=== PATIENT | female | born 1985 | race Two or more races ===

== ENCOUNTER 2019-06-15 18:44 | Observation (INO) | payer SELFPAY ==
[2016-02-28 21:15] VITALS: BP 120/91
[~2019-06-15] VITALS: Ht 157.5 cm; Wt 65.8 kg
[~2019-06-15 18:44] MED LIST: HYDR-3164 PO; NAPR-514 PO
[2019-06-15] MEDS ORDERED: IV RINGERS,LACTATED 1000ML 1,000 ML IV SCH (19:25)
[2019-06-15 19:44] LABS: BILIRUBIN,URINE NEGATIVE (NEG); CLARITY,URINE CLOUDY; COLOR,URINE YELLOW; NITRITE,URINE NEGATIVE (NEG); PH,URINE 6.5 (<5.0-8.0); PROTEIN,URINE NEGATIVE (NEG-TRACE); UROBILINOGEN,URINE 0.2 mg/dL (0.2 mg/dL)
[2019-06-15 19:51] LABS: AMNIO PT NEGATIVE
[2019-06-15 19:54] LABS: BACTERIA,URINE MODERATE /HPF (0-FEW); RBC,URINE 0 /HPF (0-2)
[2019-06-15 19:55] LABS: SQUAMOUS EPITHELIAL CELL,UR MANY /LPF
[2019-06-15] MEDS ORDERED: ACETAMINOPHEN 500 MG TABLET PO PRN (20:15)
[2019-06-15] MEDS ORDERED: hydrOXYzine 25 MG TABLET PO PRN ×2 (20:30)
== END 2019-06-15 21:30 | disposition home or self-care (01) ==
LOC: 3 SO LND 18:44
PROVIDERS: ADMIT Obstetrics & Gynecology; ATTEND Obstetrics & Gynecology
DX: O62.9 Abnormality of forces of labor, unspecified (principal); O42.913 Preterm premature rupture of membranes, unspecified as to length of time between rupture and onset of labor, third trimester; Z3A.32 32 weeks gestation of pregnancy
CPT/HCPCS: 36415; 81001; 84112; 87086; G0378; G0379

== ENCOUNTER 2019-07-24 09:42 | Inpatient (IN) | payer SELFPAY ==
[~2019-07-24] VITALS: Ht 160 cm; Wt 68.5 kg
[2019-07-24] MEDS ORDERED: CITRIC ACID/SODIUM CITRATE 30 ML SOLUTION. PO PRN (11:30)
[2019-07-24] MEDS ORDERED: OXYTOCIN 30 UNIT/500 ML PREMIX 500 ML IV PRN ×2 (11:30→13:30)
[2019-07-24] MEDS ORDERED: TERBUTALINE 1 MG/ML VIAL. SQ PRN (11:30)
[2019-07-24] MEDS ORDERED: 0.9 % SODIUM CHLORIDE 10 ML DISP.SYRIN. IV PRN ×2 (11:30→13:30)
[2019-07-24 11:39] VITALS: BP 99/66
[2019-07-24] MEDS: IV RINGERS,LACTATED 1000ML 1,000 ML IV SCH ×3 (11:48→15:36)
--- NOTE | 2019-07-24 11:50 | PDOC1 ---
OB - History Hx of Present Care: Good Care Ultrasounds: Normal mid trimester US Obstetrical Complications: None Medical Complications: None Past Family/Social History * Past Medical, Surgical, Family and Obstetric Histories reviewed from chart. Rubella: Immune RPR/VDRL: Negative GBS Status: Negative HBsAG: Negative OB - Chief Complaint & HPI Date of Admission: Date of Admission: July 24, 2019 at 09:42 Chief Complaint/History : 5 Para: 4 EGA: 38 Reason for admission: active labor (breech) Admission Nurse Assessment Rev: Yes OB - Admission Exam Physical Exam Vitals: VS - Last 72 Hours, by Label Date Time Temp Pulse Resp B/P (MAP) Pulse Ox O2 Delivery O2 Flow Rate FiO2 07/24/19 11:39 97.9 80 20 99/66 (77) 97.9 HEENT: Normal Heart: Regular Rate Lungs: Clear Abdomen: Gravid, Non tender, Soft Extremities: Edema Reflexes: Normal Cervical Dilatation: 2cm Effacement: 75% Station: -2 Membranes: Intact Heart Rate: Normal Accelerations: Accelerations Present Decelerations: No decelerations Contractions on Admission: < 5 Minutes Apart Intensity: Moderate Text A: 38 wks IUP Active labor Breech P: Plan for c/s. BINH BOSE Jr, MD July 24, 2019 11:50
[2019-07-24 11:58] LABS: BASO % 0 % (0-3); EOS % 1 % (0-3); HEMOGLOBIN 11.2 g/dL (12.0-15.5); LYMPH # 1.8 x10^3/uL (1.0-4.8); LYMPH % 22 % (24-48); MEAN CORPUSCULAR HEMOGLOBIN 28 pg (25-35); MEAN CORPUSCULAR HGB CONC 33 g/dL (31-37); MEAN CORPUSCULAR VOLUME 86 fL (79-100); MONO # 0.4 x10^3/uL (0.0-1.1); MONO % 5 % (0-9); NEUT # 5.7 x10^3/uL (1.8-7.7); NEUT % 72 % (31-73); PLATELET COUNT 275 x10^3/uL (140-400); RED BLOOD COUNT 3.96 x10^6/uL (3.50-5.40); WHITE BLOOD COUNT 7.9 x10^3/uL (4.0-11.0)
--- NOTE | 2019-07-24 13:25 | PDOC4 ---
OB Operative Note Date: July 24, 2019 PRE OP DIAGNOSIS: Breech POST OP DIAGNOSIS: Breech OPERATION PERFORMED: [facility] Surgeon Dr. Pickett Anesthesia: Regional (Spinal) Blood Loss 500 ml Specimen placenta and infant OB Findings: Position (Breech), Sex (Male), (8/9), Weight (3445 Gram) Complications none Additional Remarks ptBINH Weinberg Jr, MD July 24, 2019 13:25
[2019-07-24] MEDS ORDERED: diphenhydrAMINE ORAL ELIXIR 12.5 MG/5 ML ML PO PRN (13:30)
[2019-07-24] MEDS ORDERED: KETOROLAC 30 MG/ML VIAL. IV PRN (13:30)
[2019-07-24] MEDS ORDERED: MAG HYDROX/ALUMINUM HYD/SIMETH 30 ML ORAL.SUSP PO PRN (13:30)
[2019-07-24] MEDS ORDERED: ZOLPIDEM 5 MG TABLET. PO PRN (13:30)
--- NOTE | 2019-07-24 13:55 | OP ---
DATE OF SURGERY: PREOPERATIVE DIAGNOSES: 1. A 38 weeks' intrauterine . 2. Active labor. 3. Breech presentation. POSTOPERATIVE DIAGNOSES: 1. A 38 weeks' intrauterine . 2. Active labor. 3. Breech presentation. PROCEDURE: Primary low transverse section. SURGEON: Binh Pickett MD. ANESTHESIA: Spinal. ESTIMATED BLOOD LOSS: 500 mL. COMPLICATIONS: None. FINDINGS: Viable male infant, Apgars 8 and 9, weight 3445 grams. Three-vessel cord placenta delivered manually intact. SUMMARY: A 33-year-old 5, para 4 at 38 weeks, presented in active labor. She was found to be 2 cm dilated and breech presentation. The patient was counseled on risks, benefits and expectations of section and voiced clear understanding to proceed. DESCRIPTION OF PROCEDURE: The patient was taken to surgery suite and placed in dorsal supine position. She was prepped with ChloraPrep and draped in sterile fashion. After adequate anesthesia, Pfannenstiel skin incision was made with scalpel down to and through the fascia. Fascia was extended laterally using curved Farfan scissors. The superior edge of fascia was grasped with Rony clamps and dissected free of the abdominal rectus muscles using blunt dissection along with Bovie cautery. The same process took place inferiorly. The peritoneum was grasped with 2 hemostats and entered sharply with Metzenbaum scissors. This incision was extended superiorly as well as inferiorly. Frederick ring retractor was placed. Low transverse hysterotomy incision was made with scalpel down to the . Hysterotomy incision was extended laterally and superiorly digitally. With fundal pressure, the buttock was delivered down to the knees in which the legs were then flexed. The infant was wrapped with a moist blue towel and delivered down to the subscapular region, which the arms were flexed and delivered. With additional fundal pressure, the infant's head was delivered in atraumatic manner. Bulb syringe was used to suction orally and nasally, umbilical cord was clamped twice and cut, and viable male was handed to waiting nursing staff. Umbilical cord blood was then obtained. Three-vessel cord placenta was delivered manually intact. The uterus was then exteriorized and cleared of clot and debris with a moist lap. Hysterotomy incision was reapproximated using #1 Vicryl suture in running locked fashion. Uterus palpated firm. Fallopian tubes and ovaries appeared normal bilaterally. Posterior cul-de-sac was cleared of clot and debris with moist lap. The uterus was then returned to the abdomen. The pericolic gutters were cleared of clot and debris with moist lap. Hysterotomy incision was reviewed and was hemostatic. The Frederick ring retractor was removed. Peritoneum was reapproximated using 1 Vicryl suture in running fashion. The abdominal rectus muscles were reapproximated using #1 Vicryl suture in running fashion. The fascia was reapproximated using 0 Vicryl suture in running fashion. The skin was reapproximated using 4-0 Vicryl suture in subcuticular manner. The patient tolerated the procedure well and was taken to recovery room in stable condition. Sponge and needle count correct x 3. BINH PICKETT MD DR: LANG/lalo JOB#: [id number] / [id number]
[2019-07-24] MEDS: ONDANSETRON PF 4 MG/2 ML VIAL. IV PRN ×2 (15:20→21:23)
[2019-07-24] MEDS: KETOROLAC 30 MG/ML VIAL. IV PRN ×2 (15:22→21:23)
[2019-07-24 16:00] VITALS: BP 114/76
[2019-07-24 16:30] VITALS: BP 112/71
[2019-07-24] MEDS: diphenhydrAMINE 50 MG/ML VIAL IVP PRN ×2 (16:44→21:30)
[2019-07-24 16:58] VITALS: BP 116/71
[2019-07-24] MEDS: FERROUS SULFATE 325 MG TABLET. PO SCH (17:00)
[2019-07-24 18:00] VITALS: BP 113/73
[2019-07-24 19:20] VITALS: BP 122/79
[2019-07-25] VITALS (7 sets, daily range): BP systolic 110–122; BP diastolic 72–86
[2019-07-25] MEDS: KETOROLAC 30 MG/ML VIAL. IV PRN (06:52)
[2019-07-25 07:22] LABS: BASO % 0 % (0-3); EOS % 1 % (0-3); HEMATOCRIT 31.9 % (36.0-47.0); HEMOGLOBIN 10.5 g/dL (12.0-15.5); LYMPH # 1.6 x10^3/uL (1.0-4.8); LYMPH % 19 % (24-48); MEAN CORPUSCULAR HEMOGLOBIN 28 pg (25-35); MEAN CORPUSCULAR HGB CONC 33 g/dL (31-37); MEAN CORPUSCULAR VOLUME 86 fL (79-100); MONO # 0.6 x10^3/uL (0.0-1.1); MONO % 7 % (0-9); NEUT # 6.2 x10^3/uL (1.8-7.7); NEUT % 73 % (31-73); PLATELET COUNT 251 x10^3/uL (140-400); RED CELL DISTRIBUTION WIDTH 13.9 % (11.5-14.5); WHITE BLOOD COUNT 8.5 x10^3/uL (4.0-11.0)
[2019-07-25] MEDS ORDERED: MULTIVITAMIN with MINERAL TABLET. PO SCH (09:00)
--- NOTE | 2019-07-25 10:06 | PDOC ---
OB Progress Note Date of Service 07/25/19 Time of Evaluation 1000 Notes Pt. feeling well. No complaints. Lab Laboratory Tests Test 07/24/19 11:40 07/25/19 06:40 White Blood Count 7.9 x10^3/uL (4.0-11.0) 8.5 x10^3/uL (4.0-11.0) Red Blood Count 3.96 x10^6/uL (3.50-5.40) 3.70 x10^6/uL (3.50-5.40) Hemoglobin 11.2 g/dL (12.0-15.5) 10.5 g/dL (12.0-15.5) Hematocrit 34.0 % (36.0-47.0) 31.9 % (36.0-47.0) Mean Corpuscular Volume 86 fL (79-100) 86 fL (79-100) Mean Corpuscular Hemoglobin 28 pg (25-35) 28 pg (25-35) Mean Corpuscular Hemoglobin Concent 33 g/dL (31-37) 33 g/dL (31-37) Red Cell Distribution Width 14.0 % (11.5-14.5) 13.9 % (11.5-14.5) Platelet Count 275 x10^3/uL (140-400) 251 x10^3/uL (140-400) Neutrophils (%) (Auto) 72 % (31-73) 73 % (31-73) Lymphocytes (%) (Auto) 22 % (24-48) 19 % (24-48) Monocytes (%) (Auto) 5 % (0-9) 7 % (0-9) Eosinophils (%) (Auto) 1 % (0-3) 1 % (0-3) Basophils (%) (Auto) 0 % (0-3) 0 % (0-3) Neutrophils # (Auto) 5.7 x10^3/uL (1.8-7.7) 6.2 x10^3/uL (1.8-7.7) Lymphocytes # (Auto) 1.8 x10^3/uL (1.0-4.8) 1.6 x10^3/uL (1.0-4.8) Monocytes # (Auto) 0.4 x10^3/uL (0.0-1.1) 0.6 x10^3/uL (0.0-1.1) Eosinophils # (Auto) 0.0 x10^3/uL (0.0-0.7) 0.0 x10^3/uL (0.0-0.7) Basophils # (Auto) 0.0 x10^3/uL (0.0-0.2) 0.0 x10^3/uL (0.0-0.2) Treponema pallidum Antibody Nonreactive (Nonreactive) Laboratory Tests Test 07/24/19 11:40 07/25/19 06:40 White Blood Count 7.9 x10^3/uL (4.0-11.0) 8.5 x10^3/uL (4.0-11.0) Red Blood Count 3.96 x10^6/uL (3.50-5.40) 3.70 x10^6/uL (3.50-5.40) Hemoglobin 11.2 g/dL (12.0-15.5) 10.5 g/dL (12.0-15.5) Hematocrit 34.0 % (36.0-47.0) 31.9 % (36.0-47.0) Mean Corpuscular Volume 86 fL (79-100) 86 fL (79-100) Mean Corpuscular Hemoglobin 28 pg (25-35) 28 pg (25-35) Mean Corpuscular Hemoglobin Concent 33 g/dL (31-37) 33 g/dL (31-37) Red Cell Distribution Width 14.0 % (11.5-14.5) 13.9 % (11.5-14.5) Platelet Count 275 x10^3/uL (140-400) 251 x10^3/uL (140-400) Neutrophils (%) (Auto) 72 % (31-73) 73 % (31-73) Lymphocytes (%) (Auto) 22 % (24-48) 19 % (24-48) Monocytes (%) (Auto) 5 % (0-9) 7 % (0-9) Eosinophils (%) (Auto) 1 % (0-3) 1 % (0-3) Basophils (%) (Auto) 0 % (0-3) 0 % (0-3) Neutrophils # (Auto) 5.7 x10^3/uL (1.8-7.7) 6.2 x10^3/uL (1.8-7.7) Lymphocytes # (Auto) 1.8 x10^3/uL (1.0-4.8) 1.6 x10^3/uL (1.0-4.8) Monocytes # (Auto) 0.4 x10^3/uL (0.0-1.1) 0.6 x10^3/uL (0.0-1.1) Eosinophils # (Auto) 0.0 x10^3/uL (0.0-0.7) 0.0 x10^3/uL (0.0-0.7) Basophils # (Auto) 0.0 x10^3/uL (0.0-0.2) 0.0 x10^3/uL (0.0-0.2) Treponema pallidum Antibody Nonreactive (Nonreactive) Medications Current Medications Sodium Chloride (Normal Saline Flush) 3 ml QSHIFT PRN IV AFTER MEDS AND BLOOD DRAWS; Start 07/24/19 at 11:30 Ringer's Solution 1,000 ml @ 125 mls/hr Q8H IV Last administered on 07/24/19at 15:36; Start 07/24/19 at 11:24 Citric Acid/ Sodium Citrate (Bicitra) 30 ml 1X PRN PRN PO DYSPEPSIA Last administered on 07/24/19at 11:55; Start 07/24/19 at 11:30; Stop 07/25/19 at 11:29 Terbutaline Sulfate (Brethine) 0.25 mg 1X PRN PRN SQ SEE COMMENTS; Start 07/24/19 at 11:30; Stop 07/25/19 at 11:29 Cefazolin Sodium/ Dextrose 50 ml @ 100 mls/hr 1X ONCE IV Last administered on 07/24/19at 12:51; Start 07/24/19 at 12:00; Stop 07/24/19 at 12:29; Status DC Oxytocin/Sodium Chloride 500 ml @ 0 mls/hr CONT PRN PRN IV Post delivery bleeding; Start 07/24/19 at 11:30 Ketorolac Tromethamine (Toradol 30mg Vial) 30 mg PRN Q6HRS PRN IV PAIN Last administered on 07/25/19at 06:52; Start 07/24/19 at 13:00; Stop 07/29/19 at 12:59 Sodium Chloride (Normal Saline Flush) 3 ml QSHIFT PRN IV AFTER MEDS AND BLOOD DRAWS; Start 07/24/19 at 13:30 Oxytocin/Sodium Chloride 500 ml @ 125 mls/hr CONT PRN IV EXCESSIVE POST- BLEEDING; Start 07/24/19 at 13:30; Stop 07/24/19 at 21:29; Status DC Ibuprofen (Motrin) 800 mg PRN Q8HRS PRN PO INFLAMMATION; Start 07/24/19 at 13:30 Ondansetron HCl (Zofran) 4 mg PRN Q6HRS PRN IV NAUSEA/VOMITING Last administered on 07/24/19at 21:23; Start 07/24/19 at 13:30 Docusate Sodium (Colace) 100 mg PRN BID PRN PO CONSTIPATION; Start 07/24/19 at 13:30 Al Hydroxide/Mg Hydroxide (Mylanta Plus Xs) 30 ml PRN Q4HRS PRN PO HEARTBURN / GAS; Start 07/24/19 at 13:30 Simethicone (Gas-X) 80 mg PRN AFTMEALHC PRN PO GAS / BLOATING; Start 07/24/19 at 13:30 Diphenhydramine HCl (Benadryl Oral Elixir) 12.5 mg PRN Q6HRS PRN PO ITCHING; Start 07/24/19 at 13:30 Ferrous Sulfate (Feosol) 325 mg BIDWMEALS PO ; Start 07/24/19 at 17:00 Zolpidem Tartrate (Ambien) 5 mg PRN QHS PRN PO INSOMNIA, MAY REPEAT X1; Start 07/24/19 at 13:30 Oxycodone/ Acetaminophen (Percocet 5/325) 2 tab PRN Q4HRS PRN PO MODERATE PAIN, SEVERE PAIN; Start 07/24/19 at 13:30 Ketorolac Tromethamine (Toradol 30mg Vial) 30 mg PRN Q6HRS PRN IV PAIN; Start 07/24/19 at 13:30; Stop 07/29/19 at 13:29 Multivitamins (Thera M Plus) 1 tab DAILY PO ; Start 07/25/19 at 09:00 Diphenhydramine HCl (Benadryl) 25 mg PRN Q6HRS PRN IVP ITCHING Last ad ministered on 07/24/19at 21:30; Start 07/24/19 at 16:45 Active Scripts Active Naproxen 500 Mg Tablet 1 Tab PO BID [place] 5-325 Tablet (Acetaminophen/Hydrocodone Bitart) 1 Each Tablet 1 Tab PO PRN Q6HRS PRN Exam Abd: soft, mild tenderness, fundus firm Incision site: clean, dry and intact Assessment POD#1 s/p c/s Plan of Care: Continue current Tx, Mgmt BINH BOSE Jr, MD July 25, 2019 10:06
[2019-07-25] MEDS: FERROUS SULFATE 325 MG TABLET. PO SCH (11:24)
[2019-07-25] MEDS: oxyCODONE/APAP 5/325 1 TAB TABLET PO PRN ×2 (11:25→18:58)
[2019-07-25] MEDS: SIMETHICONE 80 MG TAB.CHEW PO PRN ×3 (11:25→19:52)
[2019-07-25] MEDS: DOCUSATE SODIUM 100 MG CAPSULE. PO PRN ×2 (11:25→17:44)
[2019-07-25] MEDS: IBUPROFEN 400 MG TABLET. PO PRN (17:43)
[2019-07-26 02:20] VITALS: BP 113/76
[2019-07-26] MEDS: IBUPROFEN 400 MG TABLET. PO PRN ×2 (02:22→10:07)
[2019-07-26] MEDS: oxyCODONE/APAP 5/325 1 TAB TABLET PO PRN ×2 (02:24→10:06)
[2019-07-26 06:34] VITALS: BP 125/83
[2019-07-26 10:45] VITALS: BP 118/78
--- NOTE | 2019-07-26 12:42 | PDOC3 ---
OB DISCHARGE SUMMARY DATE OF ADMISSION: 07/24/19 DATE OF DISCHARGE: 07/26/19 REASON FOR ADMISSION: section INTRAPARTUM PROCEDURES: : Low Cerv Trans DISCHARGE DIAGNOSIS: Term Delivered DISCHARGE INFORMATION: Activity (ad corby), Diet (regular), Instructions (pelvic rest x 6 wks, no driving x 2 wks, no lifting > 20 lbs. x 6 wks) HOSPITAL COURSE Term gestation delivered via section without complications. BINH BOSE Jr, MD July 26, 2019 12:42
[2019-07-26] MEDS ORDERED: DOCU-153 PO (12:53)
[2019-07-26] MEDS ORDERED: IBUP-1027 PO (12:53)
[2019-07-26] MEDS ORDERED: OXYC1TAB15 PO (12:53)
--- NOTE | 2019-07-26 12:53 | DISCH ---
DISCHARGE INSTRUCTIONS Condition on Discharge Condition on Discharge: Stable Activity After Discharge Activity Instructions for Disc: Activity as tolerated Lifting Instructions after Dis: No heavy lifting, No pulling or pushing, Do not lift >10 pounds Exercise Instruction after Dis: Progress as tolerated Driving Instructions after Dis: No driving for 2 weeks Weight Bearing Status after Di: As tolerated Diet after Discharge Diet after Discharge: Regular Diet Texture: Regular Swallowing Supervision: None needed Wound Incision Care Wound/Incision Care: No wound care needed Checks after Discharge Checks after discharge: Check your Temp as needed Contacting the DRCastillo after DC Call your doctor for: If your condition worsens Follow-Up Follow up with: Dr. Pickett in 2 wks. BINH PICKETT Jr, MD July 26, 2019 12:53
--- NOTE | 2019-07-26 13:34 | NUR ---
home instructions gone over with pt and sig other on home care. denies any questions at this time
[2019-07-26 15:00] VITALS: BP 112/74
== END 2019-07-26 17:34 | disposition home or self-care (01) | DRG 788 ==
LOC: OBSVTOIN 09:42 → 3 SO LND 09:42
PROVIDERS: ADMIT Obstetrics & Gynecology; ATTEND Obstetrics & Gynecology
PROC: 10D00Z1 Extraction of Products of Conception, Low, Open Approach (ICD-10-PCS; principal; 2019-07-24)
DX: O32.1XX0 Maternal care for breech presentation, not applicable or unspecified (principal); Z37.0 Single live birth; Z3A.38 38 weeks gestation of pregnancy
CPT/HCPCS: 36415; 85025; 86592; 86850; 86900; 86901; J0696; J1200; J1885; J2405; J7030; J7120; G0378